=== PATIENT | female | born 2000 ===

== ENCOUNTER 2019-10-04 10:44 | Day surgery (SDC) | payer BC ==
[2019-10-04] MEDS ORDERED: ONDANSETRON HCL IV 4 MG/2 ML VIAL IVP ONE (10:45)
[2019-10-04] MEDS ORDERED: LIDOCAINE 2% MDV (20MG/ML) 20ML VIAL IV ONE (10:45)
[2019-10-04] MEDS ORDERED: FENTANYL PF 100MCG/2ML VIAL IV ONE (10:45)
[2019-10-04] MEDS ORDERED: PROPOFOL 10 MG/ML VIAL IV ONE (10:45)
--- NOTE | 2019-10-05 15:30 | Operative Note ---
OPERATION: ESOPHAGOGASTRODUODENOSCOPY with biopsy. PREOPERATIVE DIAGNOSIS: Epigastric pain and dyspepsia. POSTOPERATIVE DIAGNOSES: 1. GE junction erosion. 2. Irregular Z line. 3. Rule out occult H pylori. PROCEDURE: After informed consent was obtained from the patient and her mother, she was placed in the left lateral decubitus position in the endoscopy suite, sedated and monitored by the department of anesthesia. A well-lubricated [id number] gastroscope was placed in the posterior oropharynx under direct visualization and passed to the proximal esophagus. The endoscope was advanced through the proximal, mid, and distal esophagus. The GE junction was slightly irregular. There was also a small associated erosion. The gastric body, antrum, pylorus, duodenal bulb and sweep were unremarkable. J-turn views of the proximal stomach were unrevealing. The endoscope was straightened and antral biopsies were obtained to rule out occult H pylori. GE junction biopsies were obtained. The endoscope was removed from the patient with no new findings noted. RECOMMENDATIONS: I would suggest the patient be on omeprazole 40 mg daily before breakfast. I would encourage her to stop smoking any tobacco or cannabis products which may contribute to reflux. If her symptoms do not improve, then an ultrasound of the abdomen would be suggested. As always, thank you for allowing me to participate in the healthcare of your patients. CHAD
== END 2019-10-04 12:35 | disposition home or self-care (01) ==
LOC: HOP 10:44
PROVIDERS: ATTEND Internal Medicine Gastroenterology
DX: R10.13 Epigastric pain (principal); K28.9 Gastrojejunal ulcer, unspecified as acute or chronic, without hemorrhage or perforation; K22.8 Other specified diseases of esophagus
CPT/HCPCS: 81025; J2405